=== PATIENT | female | born 1985 | race Caucasian/White ===

== ENCOUNTER → 2022-03-02 | Emergency (ER) | payer OTHER ==
[~2022-03-02] VITALS: Ht 157.5 cm; Wt 63.5 kg
[~2022-03-02] MED LIST: CLONAZEPAM0.5 M1 PO
== END | disposition home or self-care (01) ==
LOC: ER 06:48
DX: F41.0 Panic disorder [episodic paroxysmal anxiety] (principal); Z88.1 Allergy status to other antibiotic agents